=== PATIENT | male | born 1940 | race Caucasian/White ===

== ENCOUNTER 2020-11-06 10:48 | Outpatient (CLI) | payer MEDICARE, SELFPAY | END 2020-11-06 10:49 | disposition home or self-care (01) | PROVIDERS: PCP Internal Medicine | DX: Z23 Encounter for immunization (principal) | CPT/HCPCS: 0001A; 91300 ==

== ENCOUNTER 2020-11-27 10:43 | Outpatient (CLI) | payer MEDICARE, SELFPAY | END 2020-11-27 10:44 | disposition home or self-care (01) | LOC: ANHCOVIDVC 10:43 | PROVIDERS: PCP Internal Medicine | DX: Z23 Encounter for immunization (principal) | CPT/HCPCS: 0002A; 91300 ==

== ENCOUNTER → 2022-09-22 13:43 | Outpatient (CLI) | payer MEDICARE, SELFPAY ==
--- NOTE | ~2022-09-22 | XR_ITS ---
Clinical Indication: Cough, shortness of breath PA and lateral views of the chest: Comparison: 10/03/2017 Findings: The lungs are clear, without evidence of focal consolidation or pleural effusion. Cardiome diastinal silhouette is within normal limits. Chronic left rib fracture deformities are again noted. Impression: No acute abnormality. Reviewed, dictated and finalized at [facility]. OBIOLOGY COORDINATOR Impression: No acute abnormality.
== END ==
PROVIDERS: PCP Internal Medicine; Visit Provider Nurse Practitioner
DX: R06.02 Shortness of breath (principal); R05.9 Cough, unspecified
CPT/HCPCS: 71046

== ENCOUNTER 2022-11-30 10:15 | Outpatient (CLI) | payer MEDICARE, SELFPAY ==
[2022-11-30 19:03] LABS: Basophils Percent Auto 0.5 % (0.2-1.2); Eosinophils Absolute Auto 0.1 K/mm3 (0-0.3); Eosinophils Percent Auto 1.6 % (0-4.4); Hematocrit 47.8 % (42.0-52.0); Hemoglobin 15.8 g/dL (14.0-18.0); Immature Granulocyte Absolute 0.02 K/mm3 (0.00-0.031); Immature Granulocyte Percent A 0.3 % (0-0.5); Lymphocytes Percent Auto 36.3 % (18.3-44.2); Mean Corpuscular HGB Conc 33.1 g/dl (32-36); Mean Corpuscular Hemoglobin 32.3 pg (26-34); Mean Corpuscular Volume 97.8 fl (80-100); Mean Platelet Volume 11.1 fl (7.4-10.4); Monocytes Absolute Auto 0.6 K/mm3 (0.1-0.6); Monocytes Percent Auto 7.5 % (2.6-8.5); Neutrophils Absolute Auto 4.2 K/mm3 (1.3-6.7); Neutrophils Percent Auto 53.8 % (45.5-73.1); Platelet Count Result 189 k/mm3 (150-375); Red Blood Count 4.89 M/mm3 (4.6-6.20); Red Cell Distribution Width 12.5 % (11.5-14.5); White Blood Count 7.7 K/mm3 (4.5-10.0)
[2022-11-30 21:21] LABS: Hemoglobin A1C 5.6 % (<5.7)
[2022-11-30 21:48] LABS: Alanine Aminotransferase 34 U/L (6-50); Albumin Level 4.7 g/dL (3.5-5.1); Alkaline Phosphatase 76 U/L (38-126); Anion Gap 13 mmol/L (8-16); Aspartate Amino Transferase 33 U/L (17-59); Bilirubin,Total 0.6 mg/dL (0.2-1.3); Blood Urea Nitrogen 13 mg/dL (9-20); Carbon Dioxide 23 mmol/L (22-30); Chloride 102 mmol/L (98-107); Cholesterol 155 mg/dL (0-200); Estimated Glomerular Filt Rate > 60; Glucose 100 mg/dL (65-110); HDL Direct 35 mg/dL; Potassium 4.5 mmol/L (3.4-5.0); Sodium 138 mmol/L (137-145); Triglycerides 259 mg/dL (<150)
[2022-11-30 21:59] LABS: LDL Cholesterol Direct 82 mg/dL
== END 2022-11-30 10:16 | disposition home or self-care (01) ==
LOC: ANHGOSHLAB 10:17
PROVIDERS: PCP Internal Medicine; Visit Provider Internal Medicine
DX: I69.30 Unspecified sequelae of cerebral infarction (principal); R73.9 Hyperglycemia, unspecified; E78.2 Mixed hyperlipidemia; R45.86 Emotional lability
CPT/HCPCS: 36415; 80053; 80061; 83036; 84443; 85025

== ENCOUNTER 2023-06-03 11:03 | Emergency (ER) | payer MEDICARE, SELFPAY ==
[2023-06-03] VITALS (11 sets, daily range): BP systolic 149–182; BP diastolic 73–90; PULSE 78–80; RESP 17–19; TEMP 36.8–36.9; O2SAT 89–100
--- NOTE | ~2023-06-03 | CT_ITS ---
EXAMINATION: CT abdomen pelvis w con DATE: 06/03/2023 13:39 INDICATION: Diarrhea. Melena. TECHNIQUE: Computed tomography (CT) of the abdomen and pelvis was performed with 100 mL Omnipaque 350 intravenous contrast. Automated exposure control and iterative reconstruction technique were employe d. The dose-length product was 1084.02 mGy-cm. COMPARISON: None. FINDINGS: The visualized portions of the lung bases demonstrate mild atelectasis and mild chronic monster g disease. No pleural effusion. The heart size is normal. There are coronary artery calcifications. N o pericardial effusion. The liver, gallbladder, pancreas, and adrenal glands are normal. Calcificatio ns in the spleen are consistent with old granulomatous disease. There is cortical thinning of the kid neys. There are cysts in the kidneys measuring up to 2.3 cm on the left. There are bilateral inguinal hernias containing fat. There is diverticulosis of the colon without evidence of diverticulitis. The re are no dilated loops of bowel. The appendix is not visualized. There is calcified atherosclerosis of the aorta and many of the other arteries. There are no pathologically enlarged lymph nodes. There is no free intraperitoneal fluid. There is a right posterior diverticulum of the bladder. There is mi ld lumbar spondylosis. IMPRESSION: 1. No etiology for the patient's symptoms. Reviewed, dictated and finalized at location E.
[2023-06-03 11:23] LABS: Basophils Percent Auto 0.5 % (0.2-1.2); Eosinophils Absolute Auto 0.1 K/mm3 (0-0.3); Eosinophils Percent Auto 0.8 % (0-4.4); Hematocrit 43.4 % (42.0-52.0); Hemoglobin 14.8 g/dL (14.0-18.0); Immature Granulocyte Absolute 0.02 K/mm3 (0.00-0.031); Immature Granulocyte Percent A 0.3 % (0-0.5); Lymphocytes Absolute Auto 2.46 K/mm3 (0.9-3.2); Lymphocytes Percent Auto 32.6 % (18.3-44.2); Mean Corpuscular HGB Conc 34.1 g/dl (32-36); Mean Corpuscular Volume 93.7 fl (80-100); Mean Platelet Volume 10.9 fl (7.4-10.4); Monocytes Absolute Auto 0.6 K/mm3 (0.1-0.6); Monocytes Percent Auto 8.4 % (2.6-8.5); Neutrophils Absolute Auto 4.3 K/mm3 (1.3-6.7); Neutrophils Percent Auto 57.4 % (45.5-73.1); Platelet Count Result 168 k/mm3 (150-375); Red Blood Count 4.63 M/mm3 (4.6-6.20); Red Cell Distribution Width 12.1 % (11.5-14.5); White Blood Count 7.5 K/mm3 (4.5-10.0)
[2023-06-03 11:34] LABS: Alanine Aminotransferase 37 U/L (6-50); Albumin Level 4.3 g/dL (3.5-5.1); Alkaline Phosphatase 73 U/L (38-126); Anion Gap 7 mmol/L (8-16); Aspartate Amino Transferase 35 U/L (17-59); Bilirubin,Total 0.7 mg/dL (0.2-1.3); Blood Urea Nitrogen 15 mg/dL (9-20); Calcium 9.3 mg/dL (8.4-10.2); Carbon Dioxide 24 mmol/L (22-30); Chloride 106 mmol/L (98-107); Estimated CRCL calculation 64 ml/min; Estimated Glomerular Filt Rate > 60; Glucose 96 mg/dL (65-110); Lipase 305 U/L (23-300); Sodium 137 mmol/L (137-145)
--- NOTE | 2023-06-03 12:36 | ED.NAVMDI ---
HPI - Nausea/Vomiting/Diarrhea General Chief complaint: Nausea/Vomiting/Diarrhea Stated complaint: diarrhea Time Seen by Provider: 06/03/23 12:04 History of Present Illness HPI Narrative: Patient is an 83-year-old male with a history of CVA, hyperlipidemia, depression presenting with diarrhea. Patient states that for the last 9 days he has had multiple episodes of diarrhea each day. States that he has been using Imodium with intermittent improvement. States that he has had episodes in the middle of the night where he wakes up and he has stooled himself. He called his PCP today who advised that he come to the ER. Reports mild cramping but no focal pain. No hematochezia or melena. No nausea or vomiting, chest pain, shortness of breath, fevers, lightheadedness, dysuria, changes in appetite. States that he has been camping for the last few days but he has only been drinking bottled water. Related Data Home Medications Medication Instructions Recorded Confirmed aspirin 325 mg tablet 325 mg PO DAILY 11/12/19 06/07/23 loratadine 10 mg capsule 10 mg PO DAILY 11/12/19 06/07/23 hryhwwmobntk-hcuxpdzg-jahqig 1 tablet PO DAILY 11/12/19 06/07/23 tablet (Multivitamin 50 Plus tablet) acetaminophen 650 mg 650 mg PO Q12H 12/01/21 06/07/23 tablet,extended release Allergies Allergy/AdvReac Type Severity Reaction Status Date / Time ibuprofen [From Motrin] Allergy nausea Verified 06/07/23 09:26 Review of Systems Review of Systems: All systems reviewed & are unremarkable except as noted in HPI and below PMFSH Past Medical History Medical History Actinic keratosis of right zoroastrian Atrial fibrillation BPH (benign prostatic hyperplasia) Cataracts, both eyes Chronic GERD Depression History of cerebrovascular accident (CVA) with residual deficit HTN (hypertension) Hyperglycemia Mixed hyperlipidemia Skin lesion of scalp Trigger finger of left hand Surgical History Surgical History H/O hernia repair History of appendectomy History of back surgery 1983 Family History Family History Sibling Family history of hypercholesterolemia Father Family history of malignant melanoma Bone cancer Mother Family history of malignant neoplasm of ovary Daughter Cerebrovascular accident Social History Social History Smoking status: Former smoker Smoking end date: 09/05/83 Alcohol intake: never Lack of Transportation: No Lack of Food: Never True Current Housing: I Have Housing Concerned About Future Housing: No Difficulty Paying Gas/Electric Bills: No Difficulty Paying for Meds: No Currently Unemployed: No Education: Grade School Difficulty w/ Childcare or Family Care: No Exam Narrative: GENERAL: Well-appearing, no acute distress, pleasant and cooperative HEAD: Normocephalic, atraumatic. EYES: PERRLA and EOMI. ENT: Nares clear, no rhinorrhea or epistaxis. Mucous membranes moist. NECK: Supple. CHEST: Clear to auscultation. No respiratory distress. HEART: Regular rate and rhythm ABDOMEN: Soft, nontender, nondistended EXTREMITIES: Normal range of motion SKIN: Warm, dry, no rash. NEURO: Alert and oriented x3. PSYCH: Normal mood and affect. Course Vital Signs Vital signs: Vital Signs Temperature 98.4 F 06/03/23 11:06 Pulse Rate 80 06/03/23 11:06 Respiratory Rate 17 06/03/23 11:06 Blood Pressure 182/87 H 06/03/23 11:06 Pulse Oximetry 98 06/03/23 11:06 Oxygen Delivery Room Air 06/03/23 11:06 Temperature 98.2 F 06/03/23 15:30 Pulse Rate 78 06/03/23 15:30 Respiratory Rate 18 06/03/23 15:30 Blood Pressure 162/87 H 06/03/23 15:30 Pulse Oximetry 100 06/03/23 15:30 Oxygen Delivery Room Air 06/03/23 11:06 MDM - Nausea/Vomiting/D
[2023-06-03] MEDS: SODIUM CHLORIDE 0.9% IV 1,000 ML 999 ML IV CONT (12:47)
[2023-06-03 14:22] LABS: Add Urine Microscopic? NO; Appearance Urine Clear (Clear); Bilirubin Urine Negative (Negative); Blood Urine Negative (Negative); Color Urine Yellow (Yellow); Glucose Urine UA Negative (Negative); Ketones Urine Negative (Negative); Leukocyte Esterase Ur Negative LEU/UL (Negative); Nitrate Urine Negative (Negative); Protein Urine Negative (Negative); Specific Grav Ur 1.015 (1.001-1.035); Urobilinogen Urine 0.2 mg/dL (<2.0)
== END 2023-06-03 15:31 | disposition home or self-care (01) ==
PROVIDERS: Emergency Medicine; Emergency Provider Emergency Medicine; PCP Internal Medicine
DX: R19.7 Diarrhea, unspecified (principal); I48.91 Unspecified atrial fibrillation; I10 Essential (primary) hypertension; I69.90 Unspecified sequelae of unspecified cerebrovascular disease; E78.2 Mixed hyperlipidemia; N40.0 Benign prostatic hyperplasia without lower urinary tract symptoms; K21.9 Gastro-esophageal reflux disease without esophagitis; H26.9 Unspecified cataract; Z87.891 Personal history of nicotine dependence; Z79.82 Long term (current) use of aspirin
CPT/HCPCS: 36415; 74177; 80053; 81003; 83690; 85025; 96360; 99284; J7030; Q9967

== ENCOUNTER 2023-06-08 09:18 | Outpatient (NON) | payer MEDICARE, SELFPAY ==
[2023-06-08 11:53] LABS: Toxigenic C. Diff NEGATIVE (NEGATIVE)
== END 2023-06-08 09:19 | disposition home or self-care (01) ==
LOC: ANHLAB 09:20
PROVIDERS: PCP Internal Medicine; Visit Provider Internal Medicine
DX: R19.7 Diarrhea, unspecified (principal)
CPT/HCPCS: 87045; 87269; 87427; 87449; 87493

== ENCOUNTER → 2023-07-26 10:45 | Outpatient (CLI) | payer MEDICARE, SELFPAY ==
--- NOTE | ~2023-07-26 | XR_ITS ---
EXAMINATION: XR chest 2V DATE: 07/26/2023 11:20 INDICATION: Cough and shortness of breath. TECHNIQUE: Frontal and lateral views of the chest were obtained. COMPARISON: Chest 2 views 09/22/2022, CT abdomen and pelvis 06/03/2023 FINDINGS: There is mild scarring at the lung apices. There is no pneumonia, pleural effusion, or pneu mothorax. The heart size is normal. There are prominent paracardial fat pads. There are old healed le ft rib fractures. IMPRESSION: 1. Stable mild scarring at the lung apices. Reviewed, dictated and finalized at location E. MACOLOGY ASSOCIATE
== END ==
PROVIDERS: PCP Nurse Practitioner; Visit Provider Nurse Practitioner
DX: R05.9 Cough, unspecified (principal); R06.02 Shortness of breath
CPT/HCPCS: 71046

== ENCOUNTER → 2023-09-26 15:31 | Outpatient (CLI) | payer MEDICARE, SELFPAY ==
--- NOTE | ~2023-09-26 | XR_ITS ---
EXAMINATION: XR chest 2V DATE: 09/26/2023 15:42 INDICATION: Dyspnea. TECHNIQUE: Frontal and lateral views of the chest were obtained. COMPARISON: Chest 2 views 07/26/2023, CT abdomen and pelvis 06/03/2023 FINDINGS: There is stable mild scarring at the lung apices. There is mild atelectasis in the lower laura ng zones and left midlung zone. Calcified right hilar lymph nodes are consistent with old granulomato us disease. No pleural effusion or pneumothorax. The heart size is normal. There are prominent paraca rdial fat pads. There are old healed left rib fractures. IMPRESSION: 1. Stable mild scarring at the lung apices. Mild atelectasis in the lower lung zones and left midlung zone. Reviewed, dictated and finalized at location E. PHONE INSTALLER
== END ==
PROVIDERS: PCP Internal Medicine; Visit Provider Internal Medicine
DX: R06.09 Other forms of dyspnea (principal); I10 Essential (primary) hypertension; I63.9 Cerebral infarction, unspecified; I48.91 Unspecified atrial fibrillation; R91.8 Other nonspecific abnormal finding of lung field; Z87.891 Personal history of nicotine dependence
CPT/HCPCS: 71046

== ENCOUNTER 2023-09-27 13:28 | Outpatient (CLI) | payer MEDICARE, SELFPAY ==
--- NOTE | 2023-09-27 13:37 | ECHO_ITS ---
Patient Info Name: Nikko Ochoa Age: 83 years : 1940 Gender: Male Ht: 70 in Wt: 218 lbs BSA: 2.24 m2 HR: 77 bpm BP: 149 / 81 mmHg Heart Rhythm: Sinus Rhythm Technical Quality: Good Exam Date: 09/27/2023 2:00 PM Exam Location: Echo Lab Patient Status: Outpatient Admit Date: 09/27/2023 Staff Ordering Physician: Bryan Herndon DO Gunnery/Ordnance Officer: Gideon Carlos RDCS Attending Provider: Bryan Herndon DO Referring Physician: Yanick PENA; Exam Type: CA echo doppler color flow Study Info Indications - sob Complete two-dimensional, color flow and Doppler transthoracic echocardiogram is performed. Summary 1. Complete two-dimensional, color flow and Doppler transthoracic echocardiogram is performed. 2. Left ventricular chamber dimension is normal. 3. Left ventricular systolic function is normal, estimated at 60-65%. 4. The left ventricular diastolic function is grade I diastolic dysfunction. 5. E/e' 4 is not elevated. 6. There is moderate aortic valve sclerosis. 7. There is mild aortic valve regurgitation. 8. The mitral valve has moderately calcified annulus. 9. There is mild mitral valve regurgitation. 10. Mild pulmonary hypertension, estimated pulmonary arterial systolic pressure is 40 mmHg. 11. There is no tricuspid valve regurgitation. Left Ventricle E/e' 4 is not elevated. Left ventricular chamber dimension is normal. Left ventricular systolic function is normal, estimated at 60-65%. The left ventricular diastolic function is grade I diastolic dysfunction. Right Ventricle Right ventricular chamber dimension is normal. Right ventricular systolic function is normal and with normal TAPE 2.4 cm. Left Atria Left atrial chamber dimension is normal. Right Atria Right atrial chamber dimension is normal. Aortic Valve The aortic valve is trileaflet. There is moderate aortic valve sclerosis. There is no aortic valve stenosis. There is mild aortic valve regurgitation. Pulmonic Valve There is no pulmonic regurgitation. Mitral Valve The mitral valve has moderately calcified annulus. There is no mitral valve stenosis. There is mild mitral valve regurgitation. Tricuspid Valve There is no tricuspid valve regurgitation. Mild pulmonary hypertension, estimated pulmonary arterial systolic pressure is 40 mmHg. Pericardium/Pleural There is no pericardial effusion. Inferior Vena Cava Normal inferior vena cava with >50% collapse upon inspiration consistent with normal right atrial pressure, 5 mmHg. Aorta The aortic root size at the sinus of Valsalva is normal. Left Ventricular Outflow Tract Name Value Normal LVOT 2D LVOT Diameter 2.2 cm LVOT Doppler LVOT Peak Gradient 6 mmHg LVOT Mean Gradient 3 mmHg LVOT VTI 22 cm LVOT VTI/AV VTI Ratio 0.7 LVOT Stroke Volume 80 ml LVOT CO 4.4 l/min LVOT CI 2.0 l/min/m2 Pulmonic Valve Name Value Normal
== END 2023-09-27 13:29 | disposition home or self-care (01) ==
LOC: ANHCARD 13:30
PROVIDERS: PCP Internal Medicine; Visit Provider Internal Medicine
DX: R06.09 Other forms of dyspnea (principal); R93.1 Abnormal findings on diagnostic imaging of heart and coronary circulation; I35.8 Other nonrheumatic aortic valve disorders; I35.1 Nonrheumatic aortic (valve) insufficiency; I34.81 Nonrheumatic mitral (valve) annulus calcification; I34.0 Nonrheumatic mitral (valve) insufficiency; I37.1 Nonrheumatic pulmonary valve insufficiency
CPT/HCPCS: 93306

== ENCOUNTER 2023-09-29 07:23 | Outpatient (CLI) | payer MEDICARE, SELFPAY ==
--- NOTE | ~2023-09-29 | NM_ITS ---
EXAMINATION: NM madeline stress w perfusion DATE: 09/29/2023 09:52 INDICATION: Other forms of dyspnea TECHNIQUE: Rest images were obtained following intravenous administration of 10.1 mCi Tc99m tetrofosm in (Myoview). The patient was infused intravenously with Lexiscan (Regadenoson). Then, 32.3 mCi Tc99m tetrofosmin (Myoview) was administered intravenously, and stress images were obtained initially in t he supine position and with subsequent repeat prone imaging. Data was reconstructed into short axis a nd horizontal and vertical long axis SPECT images. Gated SPECT images were also obtained. COMPARISON: None. FINDINGS: There is no definite reversible or fixed perfusion abnormality to suggest ischemia or infar ction. There is normal left ventricular chamber size, wall motion and ejection fraction. Left ventr icular ejection fraction measures >70%. IMPRESSION: 1. Normal myocardial perfusion at rest and during stress. 2. Left ventricular ejection fraction measuring >70%. Reviewed, dictated and finalized at location A. O OPERATOR
--- NOTE | 2023-09-29 08:09 | EST_ITS ---
Patient Info Name: Nikko Ochoa Age: 83 years : 1940 Gender: Male Ht: 60 in Wt: 218 lbs BSA: 2.11 m2 HR: 61 bpm BP: 178 / 71 mmHg Heart Rhythm: Sinus Rhythm Exam Date: 09/29/2023 8:37 AM Exam Location: Echo Lab Patient Status: Outpatient Admit Date: 09/29/2023 Staff Ordering Physician: Bryan Herndon DO Attending Provider: Bryan Herndon DO Exercise Technologist: Linnette Ariza CT Exercise Physician: Frederick Vigil DO Exam Type: CA stress madeline w NM Study Info Indications R06.02 - Shortness of breath A regadenoson stress test was performed. Summary 1. 1. Negative lexiscan stress test for ischemic ST changes by ECG criteria. 2. 2. Baseline hypertension. 3. 3. Nuclear scan to follow and will be reported separately. Please correlate with it. 4. 4. Patient informed of the above results. Protocol: Lexiscan Stress ECG Details Stage: REST Duration (min): 1 min : 55 sec HR (bpm): 61 SBP (mmHg): 178 DBP (mmHg): 80 Stage: REST Duration (min): 11 min : 18 sec HR (bpm): 61 SBP (mmHg): 178 DBP (mmHg): 80 Stage: STAGE 1 Duration (min): 1 min : 0 sec HR (bpm): 60 SBP (mmHg): 178 DBP (mmHg): 80 Stage: RECOVERY Duration (min): 1 min : 0 sec HR (bpm): 73 SBP (mmHg): 159 DBP (mmHg): 49 Stage: RECOVERY Duration (min): 2 min : 0 sec HR (bpm): 72 SBP (mmHg): 159 DBP (mmHg): 49 Stage: RECOVERY Duration (min): 3 min : 0 sec HR (bpm): 73 SBP (mmHg): 158 DBP (mmHg): 61 Stage: RECOVERY Duration (min): 3 min : 16 sec HR (bpm): 74 SBP (mmHg): 158 DBP (mmHg): 61 Rest HR: 61 bpm Peak HR: 74 bpm Rest Sys BP: 178 mmHg Peak Sys BP: 159 mmHg Max Pred HR: 136 bpm % Max Pred HR: 54 % Target HR: 116 bpm Max RPP: 11,766 bpm*mmHg Termination Reason: Completed protocol Cardiac Symptoms: Shortness of breath Total Time: 1 min : 0 sec Rest Moreno BP: 80 mmHg Peak Moreno BP: 49 mmHg Total Dose: 0.4 mg Resting ECG Sinus rhythm, IRBBB. Stress ECG No ST changes. Arrhythmias None. Report Signatures
== END 2023-09-29 07:24 | disposition home or self-care (01) ==
PROVIDERS: PCP Internal Medicine; Visit Provider Internal Medicine
DX: R06.09 Other forms of dyspnea (principal); R07.9 Chest pain, unspecified
CPT/HCPCS: 78452; 93017; A9502; J2785

== ENCOUNTER 2023-10-10 14:22 | Outpatient (CLI) | payer MEDICARE, SELFPAY ==
--- NOTE | 2023-10-10 15:46 | WPDPFTINT ---
PFT Procedure Performed PFT Procedure Performed Spirometry with Pre/Post Bronchodilator Plethysmography (Lung Vol) Diffusing Cap (DLCO) Flow Vol Loop PFT Interpretation This is a pulmonary function test with pre and post-bronchodilator spirometry, plethysmography and diffusing capacity. The test was performed and results interpreted in accordance with the 2019 and 2005 ATS/ERS Task Force guidelines respectively using the Global Lung Function Initiative-2012 reference equations. Patient demonstrated good effort and cooperation. Reproducibility criteria were met. The quality of the pre bronchodilator spirometry maneuver was Grade A and post bronchodilator spirometry maneuver was Grade A. Findings: Spirometry: There is decreased maximal expiratory airflow at low lung volumes with concave expiratory flow tracing. The contour the inspiratory flow tracing is normal. The pre bronchodilator FVC is 2.57 L, 68% predicted. The pre bronchodilator FEV1 is 1.79 L, 65% predicted. The pre bronchodilator FEV1: FVC ratio 70%. The post bronchodilator FVC is 2.50 L, representing a 3% decrease. The post bronchodilator FEV1 is 1.82 L representing a 2% increase. The post bronchodilator FEV1: FVC ratio 73%. Plethysmography: The total lung capacity is 4.41 L, 62% predicted. The functional residual capacity is 2.42 L, 63% predicted. The residual volume is 1.84 L, 67% predicted. Diffusing capacity: The diffusing capacity unadjusted for hemoglobin and carboxyhemoglobin is 16.3, 71% predicted. The diffusing capacity adjusted for alveolar volume is 4.14, 118% predicted. Impression: There is a combined obstructive and restrictive ventilatory abnormality. There are no guidelines to assign the severity of obstruction and restriction with a combined abnormality. In my opinion, given the mildly concave expiratory flow tracing, normal FEV1: FVC ratio and moderate restrictive abnormality I would state there is a minimal obstructive abnormality and a moderate restrictive abnormality resulting in a moderate decrease in the FEV1. There is no significant improvement after inhaling a single dose of albuterol. The diffusing capacity is normal. There are no prior studies for comparison
== END 2023-10-10 14:23 | disposition home or self-care (01) ==
LOC: ANHPFT 14:27
PROVIDERS: PCP Internal Medicine; Visit Provider Internal Medicine
DX: R06.09 Other forms of dyspnea (principal); R94.2 Abnormal results of pulmonary function studies
CPT/HCPCS: 94060; 94726; 94729

== ENCOUNTER 2023-12-26 14:19 | Outpatient (CLI) | payer MEDICARE, SELFPAY ==
[2023-12-26 19:02] LABS: Alanine Aminotransferase 23 U/L (6-50); Albumin Level 4.6 g/dL (3.5-5.1); Alkaline Phosphatase 84 U/L (38-126); Anion Gap 8 mmol/L (4-12); Aspartate Amino Transferase 47 U/L (17-59); Bilirubin,Total 0.9 mg/dL (0.2-1.3); Blood Urea Nitrogen 14 mg/dL (9-20); Calcium 10.1 mg/dL (8.4-10.2); Carbon Dioxide 26 mmol/L (22-30); Chloride 105 mmol/L (98-107); Cholesterol 136 mg/dL (0-200); Estimated Glomerular Filt Rate > 60; Glucose 100 mg/dL (65-110); HDL Direct 36 mg/dL; Potassium 4.5 mmol/L (3.4-5.0); Sodium 139 mmol/L (137-145); Triglycerides 244 mg/dL (<150)
[2023-12-26 19:13] LABS: LDL Cholesterol Direct 73 mg/dL
[2023-12-26 19:19] LABS: Basophils Absolute Auto 0.1 K/mm3 (0.0-0.1); Basophils Percent Auto 0.6 % (0.2-1.2); Eosinophils Absolute Auto 0.1 K/mm3 (0-0.3); Eosinophils Percent Auto 0.6 % (0-4.4); Hematocrit 46.6 % (42.0-52.0); Immature Granulocyte Absolute 0.02 K/mm3 (0.00-0.031); Immature Granulocyte Percent A 0.2 % (0-0.5); Lymphocytes Absolute Auto 2.86 K/mm3 (0.9-3.2); Lymphocytes Percent Auto 35.4 % (18.3-44.2); Mean Corpuscular HGB Conc 34.3 g/dl (32-36); Mean Corpuscular Hemoglobin 31.7 pg (26-34); Mean Corpuscular Volume 92.3 fl (80-100); Mean Platelet Volume 11.6 fl (7.4-10.4); Monocytes Absolute Auto 0.6 K/mm3 (0.1-0.6); Monocytes Percent Auto 7.4 % (2.6-8.5); Neutrophils Absolute Auto 4.5 K/mm3 (1.3-6.7); Neutrophils Percent Auto 55.8 % (45.5-73.1); Platelet Count Result 190 k/mm3 (150-375); Red Blood Count 5.05 M/mm3 (4.6-6.20); Red Cell Distribution Width 12.1 % (11.5-14.5); White Blood Count 8.1 K/mm3 (4.5-10.0)
[2023-12-26 21:38] LABS: Hemoglobin A1C 5.3 % (<5.7)
== END 2023-12-26 14:20 | disposition home or self-care (01) ==
LOC: ANHGOSHLAB 14:22
PROVIDERS: PCP Internal Medicine; Visit Provider Internal Medicine
DX: E78.2 Mixed hyperlipidemia (principal); R73.9 Hyperglycemia, unspecified; R06.09 Other forms of dyspnea
CPT/HCPCS: 36415; 80053; 80061; 83036; 85025

== ENCOUNTER 2025-01-15 09:53 | Outpatient (CLI) | payer MEDICARE, SELFPAY ==
--- OUTSIDE RECORDS SUMMARY | 2025-01-15 10:04 | XMS_ITS | Clinical Summary ---
Author Organization [facility] Address [facility] [place] [address] Care Team Providers Care Analytical Strategist Name Role Phone Unavailable Primary Care Provider Unavailabl e Social History Tobacco Use Types Packs/Day Years Used Date Smoking Tobacco: Never Assessed Sex and Gender Information Value Date Recorded Sex Assigned at Not on file Legal Sex Male 6:46 PM CDT Gender Identity Not on file Sexual Orientation Not on file Plan of Treatment Health Maintenance Due Date Last Done Comments DTaP, Tdap and Td Vaccines ( 1 - Tdap) 1959 Pneumococcal Vaccine: 50+ Ye ars (1 of 1 - PCV) 1989 Zoster Vaccines (1 of 2) 1989 RSV Immunization or 60+ Years (1 - 1-dose 75+ series) 2014 COVID-19 Vaccine ( - 2023-2 5 season) 2024 Meningococcal B Vaccine Aged Out No l onger eligible based on patient's age to complete this topic Meningococcal Vaccine Aged Out No christine alistair eligible based on patient's age to complete this topic RSV Immunizations Under 20 Months Aged Out No longer eligible based on patient's age to complete this topic
[2025-01-15 13:13] LABS: Basophils Absolute Auto 0.1 K/mm3 (0.0-0.1); Basophils Percent Auto 0.6 % (0.2-1.2); Eosinophils Absolute Auto 0.1 K/mm3 (0-0.3); Eosinophils Percent Auto 0.9 % (0-4.4); Hematocrit 46.7 % (42.0-52.0); Hemoglobin 14.9 g/dL (14.0-18.0); Immature Granulocyte Absolute 0.03 K/mm3 (0.00-0.031); Immature Granulocyte Percent A 0.4 % (0-0.5); Lymphocytes Absolute Auto 3.13 K/mm3 (0.9-3.2); Lymphocytes Percent Auto 39.6 % (18.3-44.2); Mean Corpuscular HGB Conc 31.9 g/dl (32-36); Mean Corpuscular Hemoglobin 31.3 pg (26-34); Mean Corpuscular Volume 98.1 fl (80-100); Mean Platelet Volume 11.6 fl (7.4-10.4); Monocytes Absolute Auto 0.7 K/mm3 (0.1-0.6); Monocytes Percent Auto 9.1 % (2.6-8.5); Neutrophils Absolute Auto 3.9 K/mm3 (1.3-6.7); Neutrophils Percent Auto 49.4 % (45.5-73.1); Platelet Count Result 180 k/mm3 (150-375); Red Blood Count 4.76 M/mm3 (4.6-6.20); Red Cell Distribution Width 12.2 % (11.5-14.5); White Blood Count 7.9 K/mm3 (4.5-10.0)
[2025-01-15 13:26] LABS: Alanine Aminotransferase 24 U/L (6-50); Albumin Level 4.3 g/dL (3.5-5.1); Alkaline Phosphatase 68 U/L (38-126); Anion Gap 8 mmol/L (4-12); Aspartate Amino Transferase 44 U/L (17-59); Bilirubin,Total 0.6 mg/dL (0.2-1.3); Blood Urea Nitrogen 17 mg/dL (9-20); Calcium 9.5 mg/dL (8.4-10.2); Carbon Dioxide 27 mmol/L (22-30); Chloride 103 mmol/L (98-107); Cholesterol 162 mg/dL (0-200); Estimated Glomerular Filt Rate > 60; Glucose 86 mg/dL (65-110); HDL Direct 38 mg/dL; Potassium 4.5 mmol/L (3.4-5.0); Sodium 138 mmol/L (137-145); Triglycerides 283 mg/dL (<150)
[2025-01-15 13:37] LABS: LDL Cholesterol Direct 79 mg/dL
== END 2025-01-15 09:54 | disposition home or self-care (01) ==
PROVIDERS: PCP Internal Medicine; Visit Provider Internal Medicine
DX: E78.2 Mixed hyperlipidemia (principal); R06.09 Other forms of dyspnea
CPT/HCPCS: 36415; 80053; 80061; 85025

== ENCOUNTER 2025-05-10 08:38 | Outpatient (CLI) | payer MEDICARE, SELFPAY ==
--- NOTE | ~2025-05-10 | CT_ITS ---
EXAMINATION: CT sinus wo con DATE: 05/10/2025 08:58 INDICATION: Chronic sinusitis TECHNIQUE: Computed tomography (CT) of the paranasal sinuses was performed without intravenous contrast. The dose-length product was 396.68 mGy-cm. Automated exposure control and iterative reconstruction technique were employed. COMPARISON: CT dated 05/07/2020 FINDINGS: There is a mucous retention cyst left maxillary sinus. There is mucosal thickening of the left ethmoid and sphenoid sinuses. Left ostiomeatal unit is partially occluded by soft tissue. No mucoperiosteal reaction. No significant nasal septal deviation. Mastoids are pneumatized. There is intrac ranial atherosclerosis. IMPRESSION: 1. Moderate sinus disease of the left maxillary, ethmoid and sphenoid sinuses. Reviewed, dictated and finalized at location O.
== END 2025-05-10 08:39 | disposition home or self-care (01) ==
LOC: GOSHIMG 08:39
PROVIDERS: PCP Internal Medicine; Visit Provider Internal Medicine
DX: J32.9 Chronic sinusitis, unspecified (principal)
CPT/HCPCS: 70486